=== PATIENT | female | born 1985 | race Caucasian/White ===

== ENCOUNTER → 2016-07-06 | Outpatient (CLI) | payer MEDICAID ==
[~2016-07-06] MED LIST: IBUP-1773 PO; PNV1TABL56 PO
--- NOTE | 2016-07-06 18:42 | Diagnostic Imaging Report ---
INDICATION: Neck pain. FINDINGS: Sonographic surveillance over the region of pain reveals no mass or fluid collection. Muscular echotexture and morphology appeared normal. IMPRESSION: No sonographic abnormality identified. Dictated by: Dictated on workstation # [id number]
== END ==
LOC: RAD 14:20
PROVIDERS: ATTEND Family Medicine
DX: R22.1 Localized swelling, mass and lump, neck (principal)
CPT/HCPCS: 76536

== ENCOUNTER 2016-11-17 06:58 | Day surgery (SDC) | payer MEDICAID ==
[~2016-11-17] VITALS: Ht 172.7 cm; Wt 94.8 kg
--- NOTE | 2016-11-17 07:01 | Progress Note-Pre Operative ---
Pre-Operative Progress Note H&P Reviewed The H&P was reviewed, patient examined and no changes noted. Date Seen by Provider: Nov 17, 2016 Time Seen by Provider: 07:05 Date H&P Reviewed: Nov 17, 2016 Time H&P Reviewed: 07:05 Pre-Operative Diagnosis: Retained IUD RIO VALLEJO DO Nov 17, 2016 7:01 am
[2016-11-17] MEDS ORDERED: LACTATED RINGERS 1,000 ML IV PRN (07:18)
[2016-11-17 07:30] VITALS: BP 125/82
[2016-11-17] MEDS ORDERED: CATHETER FLUSH 10 ML SYR IV PRN (07:30)
[2016-11-17] MEDS ORDERED: ceFAZolin 1 GM/NS 50 ML IVPB IV ONE ×2 (07:30)
[2016-11-17] MEDS ORDERED: MIDAZOLAM 2 MG/2 ML (VERSED) VIAL IV ONE (07:30)
[2016-11-17 07:41] LABS: BASOPHILS % (AUTO) 0 % (0-10); EOSINOPHILS # (AUTO) 0.1 10^3/uL (0.0-0.3); EOSINOPHILS % (AUTO) 2 % (0-10); LYMPHOCYTES # (AUTO) 1.7 X 10^3 (1.0-4.0); LYMPHOCYTES % (AUTO) 24 % (12-44); MEAN CORPUSCULAR HEMOGLOBIN 28 PG (25-34); MEAN CORPUSCULAR HGB CONC 33 G/DL (32-36); MEAN CORPUSCULAR VOLUME 84 FL (80-99); MEAN PLATELET VOLUME 10.4 FL (7.4-10.4); MONOCYTES # (AUTO) 0.5 X 10^3 (0.0-1.0); MONOCYTES % (AUTO) 7 % (0-12); NEUTROPHILS # (AUTO) 4.5 X 10^3 (1.8-7.8); NEUTROPHILS % (AUTO) 67 % (42-75); PLATELET COUNT 229 10^3/uL (130-400); RED BLOOD COUNT 4.69 10^6/uL (4.35-5.85); RED CELL DISTRIBUTION WIDTH 13.1 % (10.0-14.5); WHITE BLOOD COUNT 6.8 10^3/uL (4.3-11.0)
[2016-11-17] MEDS ORDERED: BUPIVACAINE 0.25% 30 ML (SENSORCAINE) VIAL ONE (09:20)
[2016-11-17] MEDS ORDERED: DEXAMETHASONE PF 10 MG/ML (DECADRON) VIAL ONE (09:23)
[2016-11-17] MEDS ORDERED: ROCURONIUM 50 MG/5 ML (ZEMURON) VIAL IV ONE ×2 (09:23→11:28)
[2016-11-17] MEDS ORDERED: LIDOCAINE PF 0.5% 50 ML (XYLOCAINE) VIAL ONE (09:23)
[2016-11-17] MEDS ORDERED: LACTATED RINGERS 1,000 ML IV ONE ×2 (09:23→12:12)
[2016-11-17] MEDS ORDERED: ONDANSETRON 4 MG/2 ML (SDV) Z0FRAN ONE (09:23)
[2016-11-17] MEDS ORDERED: proPOfol 200 MG/20 ML (DIPRIVAN) VIAL IV ONE ×2 (09:23→11:28)
[2016-11-17] MEDS ORDERED: SEVOFLURANE (ULTANE) 15 ML INHAL SOLN ONE ×2 (09:23→12:12)
[2016-11-17] MEDS ORDERED: MIDAZOLAM 2 MG/2 ML (VERSED) VIAL ONE ×2 (09:24→11:28)
[2016-11-17] MEDS ORDERED: fentaNYL INJECTION 100 MCG/2 ML AMP ONE ×2 (09:24→11:28)
[2016-11-17] MEDS ORDERED: IBUP-1773 PO (09:36)
[2016-11-17] MEDS ORDERED: HYDR-3062 PO (09:36)
[2016-11-17] MEDS ORDERED: GLYCOPYRROLATE 0.2 MG/ML (ROBINUL) 2 ML VIAL ONE (10:27)
[2016-11-17] MEDS ORDERED: NEOSTIGMINE (BLOXIVERZ ) 1 MG/1ML 10 ML VIAL ONE (10:27)
[2016-11-17] MEDS ORDERED: D5 LR IV SOLUTION 1,000 ML IV SCH (10:40)
--- NOTE | 2016-11-17 10:44 | Discharge Inst-Women's Service ---
Discharge Inst-Women's Serv Depart Medication/Instructions New, Converted or Re-Newed RX: RX Given to Pt/Family Final Diagnosis IUD not found Consults/Follow Up Additional Follow Up: Yes Orders/Referrals Dr. Vallejo in 2-3 weeks Activity Activity: Activity as Tolerated Driving Instructions: You May Drive (do not drive if taking hydrocodone) NO SMOKING: NO SMOKING Nothing Inside Vagina: No Douching, No Veteran (x 2 weeks), No Tampons Diet Discharge Diet: No Restrictions Symptoms to Report to : Appetite Changes, Bleeding Excessive, Pain Increased , Fever Over 101 Degrees F, Vaginal Bleeding Increase, Questions/Concerns For Any Problems or Questions: Contact Your Physician Skin/Wound Care Bathing Instructions: Shower (x 2 weeks) RIO VALLEJO DO Nov 17, 2016 10:44
[2016-11-17] MEDS ORDERED: morphine INJ 10 MG/ML 1ML (SYR OR VIAL) IVP PRN ×2 (10:45→12:45)
[2016-11-17] MEDS ORDERED: ONDANSETRON 4 MG/2 ML (SDV) Z0FRAN IVP PRN ×3 (10:45→12:45)
[2016-11-17] MEDS ORDERED: MEPERIDINE (DEMEROL) INJ 50 MG/ML IVP PRN (10:45)
[2016-11-17] MEDS ORDERED: fentaNYL INJECTION 100 MCG/2 ML AMP IVP PRN (10:45)
[2016-11-17] MEDS ORDERED: KETOROLAC 30 MG/ML VIAL IVP ONE (10:45)
--- NOTE | 2016-11-17 11:05 | Diagnostic Imaging Report ---
AP view of the pelvis. INDICATION: Check for position of IUD. FINDINGS: There is an IUD seen along the right lateral aspect of the pelvis. No fracture, dislocation or radiopaque foreign body seen. IMPRESSION: There is an IUD seen in the right lateral aspect of the pelvis. Dictated by: Dictated on workstation # [id number]
[2016-11-17] MEDS ORDERED: SUGAMMADEX 100 MG/ML 5 ML (BRIDION) IV ONE (12:00)
[2016-11-17] MEDS ORDERED: GLUCAGON EMERGENCY 1 MG/KIT ONE (12:52)
[2016-11-17 13:15] VITALS: BP 119/84
[2016-11-17 13:45] VITALS: BP 126/79
[2016-11-17 14:15] VITALS: BP 119/74
--- NOTE | 2016-11-17 21:50 | OPERATIVE REPORT ---
DATE OF SERVICE: PREOPERATIVE DIAGNOSIS: A 31-year-old female with retained intrauterine device. POSTOPERATIVE DIAGNOSIS: A 31-year-old female with retained intrauterine device. PROCEDURE: Cervical dilation and hysteroscopy. ANESTHESIA: LMA General. ESTIMATED BLOOD LOSS: Minimal. URINE OUTPUT: 10 mL clear drained at the end of procedure. FLUIDS: 500 mL of normal saline solution. FINDINGS: Normal-appearing uterus and endometrial cavity. No evidence of perforation. Normal tubal ostia appreciated on hysteroscopic evaluation. Normal appearing cervix. Normal adnexa on bimanual examination. SPECIMENS SENT: None. INDICATIONS FOR PROCEDURE: This is a 31-year-old female in consultation to my office for a retained IUD that was seen on her last exam with . The patient reports ongoing bloating and cramping since placement of the IUD approximately 11 months ago. Upon my evaluation in the office, I was unable to remove the IUD and performed a limited ultrasound at bedside in my office, which did show it looked like it was in the lower uterine segment but due to the patient's discomfort, we did not proceed with further attempting to remove the IUD and I then decided to proceed with removal under anesthesia. Risks of the procedure were discussed with the patient in detail including possible laparoscopy and hysteroscopy. After all the questions were answered and her fiance was present for all those questions as well as consent was obtained in the preoperative day and the patient was taken to the operative room. OPERATIVE REPORT IN DETAIL: Once in the operating room, general anesthesia was found to be adequate, was placed in dorsal lithotomy position, prepped and draped in a normal sterile fashion. A lid speculum was inserted into the patient's vagina, a right angle retractor was used to visualize the cervix. It was grasped at about 2 o'clock position using a long Allis clamp and a block was performed at 3 and 9 o'clock position using 0.25% Marcaine, total of 10 mL was used, 5 at each injection site. I then gently sounded uterine cavity depth was found to be 8 cm and used the uterine sound to rotate throughout the endometrial cavity to feel for the IUD. I then blindly attempt unto remove the IUD using long polyp forceps and I was unable to grasp it. After several failed attempts of doing this, I then proceed with hysteroscopy. Using normal saline as my visual medium, I advanced the hysteroscope into the uterine cavity. Starting visualization of the cervix, I am unable to visualize any signs of the IUD perforation or any kind of damage of the endometrial cavity is noted. This is all documented with my pictures of the intrauterine cavity. At which point, I draw two conclusions of either one the IUD did come out or two it did perforate but this happened quite some time ago due to no evidence of damage on hysteroscopy. I decided to awake the patient up and performed KUB to confirm that it had actually come out vaginally. All instruments were removed from the patient's vagina. The patient tolerated the procedure well, send to recovery room in stable condition. Bladder was emptied after the procedure was complete. Lap, sponge, needle counts are correct at the end of the procedure. Job ID: [id number] DocumentID: [id number] Dictated Date: 11/17/2016 10:49:34 Copy Lathe Tender Date: 11/17/2016 14:02:42 Dictated By: RIO ARELLANO MD
--- NOTE | 2016-11-17 23:38 | OPERATIVE REPORT ---
DATE OF SERVICE: PREOPERATIVE DIAGNOSIS: Retained intrauterine device in the right lower quadrant on KUB. POSTOPERATIVE DIAGNOSIS: Retained intrauterine device in the right lower quadrant on KUB. PROCEDURE: Laparoscopic retrieval of intraperitoneal intrauterine device. SURGEON: Rio Vallejo DO ANESTHESIA: General endotracheal. ESTIMATED BLOOD LOSS: Minimal. URINE OUTPUT: Not recorded. FLUIDS: 600 mL lactated ringer solution. FINDINGS: There is Mirena IUD located in the pelvis posterior to the broad ligament in the area of the ovarian fossa. There is normal appearing uterus, fallopian tubes and ovaries. INDICATIONS FOR PROCEDURE: This patient has just came out of anesthesia from diagnostic hysteroscopy to locate IUD. A KUB was performed in the recovery setting, but the IUD was identified in the right lower quadrant on KUB x-ray. I have briefly discussed with the patient and her family that we will take her back to the operating room to remove the IUD from the intraperitoneal placement that was noted on the x-ray. I have already discussed with the patient before and had her consent to receive with laparoscopy and, therefore the patient was then taken back to the operating room. OPERATIVE REPORT IN DETAIL: Once in the operating room general anesthesia was found to be adequate, she was placed in the supine position and prepped and draped in normal sterile fashion. I infiltrated the skin just inferior to the umbilicus using 0.25% Marcaine and make a 12 mm incision. Once this incision was made, I directed Veress needle to this incision. Intraperitoneal placement was confirmed using the saline drop test. I then proceeded with insufflation using CO2 gas. An opening pressure of 2 mmHg was noted. I proceeded to a maximum pressure of 15 mmHg, at which point I removed the Veress needle and introduced a 12 mm blunt trocar. Once this was in place, I am able to confirm intraperitoneal placement using the laparoscope. I briefly scanned the upper abdominal anatomy for any evidence of damage upon entry and there is none. I then have the patient placed in steep Trendelenburg and I am able to visualize after lifting up the uterus and fallopian tube using the camera, the IUD in the right ovarian fossa. I then introduced to the same port as the 12 mm trocar, a 5 mm camera and a grasper. The grasper was used to grasp the IUD by the strings and it is easily removed through the 12 mm trocar site. I then briefly scanned where the IUD was okay. There was no evidence of damage or bleeding. At which point I deemed the procedure complete and removed the laparoscope. I then released the insufflation through the trocar and closed the deep fascia of this trocar site after removing it using 0 Vicryl suture in interrupted fashion. The skin was reapproximated using 4-0 Monocryl and an interrupted subcuticular stitch. Dermabond was applied to the incision and a Band-Aid was placed over this. The patient tolerated the procedure well and was taken to recovery area in stable condition. Lap and sponge counts correct at the end of the procedure. Instrument count was correct as well. Job ID: [id number] DocumentID: [id number] Dictated Date: 11/17/2016 13:11:50 Community Relations Liaison Date: 11/17/2016 20:49:08 Dictated By: RIO VALLEJO DO
--- OUTSIDE RECORDS SUMMARY | 2016-11-21 10:29 | XMS REPORT ---
Author Author NAHOMY CORDOBA [facility] eClinicalWorks Address Unknown Phone Unavailable Care Team Providers Care Electric Razor Mechanic Name Role Phone NAHOMY CORDOBA Unavailable Allergies, Adverse Reactions, Alerts Substance Reaction Event Type N.K.D.A. Info Not Available Non Drug Allergy Problems Problem Type Condition Code Onset Dates Condition Status Assessment Leukopenia, unspecified type D72.819 Active Assessment with 12 completed weeks gestation Z3A.12 Active Assessment Nausea R11.0 Active Problem Need for rhogam due to Rh negative mother O36.0990 Active Problem History of pre-eclampsia in prior , currently in first trimester O09.291 Active Problem Vaginal bleeding during , antepartum O46.90 Active Assessment History of pre-eclampsia in prior , currently in first trimester O09.291 Active Assessment Need for rhogam due to Rh negative mother O36.0990 Active Problem Abdominal cramping R10.9 Active Assessment care, subsequent in first trimester Z34.81 Active Medications Medication Code System Code Instructions Start Date End Date Status Dosage Vitamin [facility] [address] not defined Procedures Procedure Coding System Code Date Office Visit, Est Pt., Level 3 CPT-4 40401 Jun 30, 2015 BLOOD SMEAR INTERPRETATION CPT-4 88884 Jun 30, 2015 URINE-NO MICRO CPT-4 68395 Jun 30, 2015 ACUTE HEPATITIS PANEL CPT-4 51771 Jun 30, 2015 COMPLETE CBC W/AUTO DIFF WBC CPT-4 59660 Jun 30, 2015 VENIPUNCT, ROUTINE* CPT-4 92164 Jun 30, 2015 Vital Signs Date/Time: Jun 30, 2015 Temperature 98.4 F Weight 171.9 lbs Height 68.5 in BMI 25.757 Index Blood Pressure Diastolic 85 mmHg Blood Pressure Systolic 118 mmHg Cardiac Monitoring Heart Rate 76 bpm Results Name Result Date Reference Range Unit Abnormality Flag PERIPHERAL BLOOD SMEAR ----PLTs Appear normal. 20150630 ----WBC Appear normal. [id number] ----RBC Appear normal. 20150630 CBC ----Basos 0 20150630 % ----MCV 86 31167647 79-97 fL ----Hematocrit 39.8 72701455 34.0-46.6 % ----Eos 0 20150630 % ----MCHC 32.4 41320760 31.5-35.7 g/dL ----Monocytes 6 69944406 % ----MCH 27.7 31492622 26.6-33.0 pg ----Lymphs 17 92952866 % ----Eos (Absolute) 0.0 [id number] 0.0-0.4 x10E3/uL ----WBC 8.2 24032834 3.4-10.8 x10E3/uL ----Monocytes(Absolute) 0.5 44524098 0.1-0.9 x10E3/uL ----Lymphs (Absolute) 1.4 64929972 0.7-3.1 x10E3/uL ----Hemoglobin 12.9 65711848 11.1-15.9 g/dL ----Neutrophils (Absolute) 6.3 73390847 1.4-7.0 x10E3/uL ----RBC 4.65 91658756 3.77-5.28 x10E6/uL ----Immature Grans (Abs) 0.0 25537923 0.0-0.1 x10E3/uL ----Immature Granulocytes 0 20150630 % ----Neutrophils 77 50350642 % ----Baso (Absolute) 0.0 52870317 0.0-0.2 x10E3/uL ----RDW 14.1 23688105 12.3-15.4 % ----Platelets 227 19928039 150-379 x10E3/uL UA OB DIP (IN HOUSE) ----Glucose Negative 20150630 ----Protein Negative 20150630 ROUTINE VENIPUNCTURE HEPATITIS PROFILE ----Hep C Virus Ab <0.1 20150630 0.0-0.9 s/co ratio ----Hep B Core Ab, IgM Negative 20150630 Negative ----HBsAg Screen Negative 20150630 Negative ----Hep A Ab, IgM Negative 20150630 Negative Summary Purpose eClinicalWorks Submission
--- OUTSIDE RECORDS SUMMARY | 2016-11-21 10:29 | XMS REPORT ---
Author Author TONEY TENORIO [facility] eClinicalWorks Address Unknown Phone Unavailable Care Team Providers Care Websphere Message Broker Developer Name Role Phone TONEY TENORIO CP Unavailable Allergies No Known Allergies Problems Problem Type Condition Code Onset Dates Condition Status Assessment 24 weeks gestation of Z3A.24 Active Problem Underimmunization status Z28.3 Active Problem Vaginal bleeding during , antepartum O46.90 Active Problem Other normal , not first, second trimester Z34.82 Active Problem Abdominal cramping R10.9 Active Assessment Other normal , not first, second trimester Z34.82 Active Problem Need for rhogam due to Rh negative mother O36.0990 Active Problem History of pre-eclampsia in prior , currently in first trimester O09.291 Active Medications Medication Code System Code Instructions Start Date End Date Status Dosage Vitamin [facility] [address] not defined Procedures Procedure Coding System Code Date Office Visit, Est Pt., Level 3 CPT-4 78606 September 21, 2015 URINE-NO MICRO CPT-4 91166 September 21, 2015 Vital Signs Date/Time: September 21, 2015 Temperature 97.8 F Weight 184.1 lbs Height 68.5 in BMI 27.585 Index Blood Pressure Diastolic 82 mmHg Blood Pressure Systolic 122 mmHg Cardiac Monitoring Heart Rate 78 bpm Results No Known Results Summary Purpose eClinicalWorks Submission
--- OUTSIDE RECORDS SUMMARY | 2016-11-21 10:29 | XMS REPORT ---
Author Author TONEY TENORIO [facility] Address [address] [place] [address] Care Team Providers Care Adoption Specialist Name Role Phone TONEY TENORIO Unavailable PROBLEMS Type Condition ICD9-CM Code VNK26-HJ Code Onset Dates Condition Status SNOMED Code Assessment Routine follow-up Z39.2 Jan, Active [id number] Assessment Encounter for counseling regarding contraception Z30.9 Jan Active [id number] ALLERGIES Substance Reaction Event Type Date Status N.K.D.A. Unknown Non Drug Allergy Jan, Unknown SOCIAL HISTORY No smoking Hx information available PLAN OF CARE VITAL SIGNS Height 68.5 in 2016-02-15 Weight 184.0 lbs 2016-02-15 Heart Rate 78 bpm 2016-02-15 Respiratory Rate 20 2016-02-15 BMI 27.57 kg/m2 2016-02-15 Blood pressure systolic 126 mmHg 2016-02-15 Blood pressure diastolic 78 mmHg 2016-02-15 MEDICATIONS No Known Medications RESULTS No Results PROCEDURES Procedure Date Ordered Related Diagnosis Body Site Office Visit, Est Pt., Level 3 Feb 15, 2016 IMMUNIZATIONS No Known Immunizations
--- OUTSIDE RECORDS SUMMARY | 2016-11-21 10:29 | XMS REPORT | Continuity of Care Document ---
Author Author [facility] Address Unknown Phone Unavailable Allergies Active Description Code Type Severity Reaction Onset Reported/Identified Relationship to Patient Clinical Status Yes No Known Drug Allergies [id number] Drug Allergy Unknown N/ A 06/13/2012 Medications Problems Date Dx Coded Attending Type Code Diagnosis Diagnosed By 11/24/2011 TONEY TENORIO DO V72.42 Test Positive Result 11/24/2011 V72.42 Test Positive Result 11/24/2011 V72.42 Test Positive Result 11/24/2011 TONEY TENORIO DO V72.42 Test Positive Result 11/24/2011 V72.42 Test Positive Result 11/24/2011 V72.42 Test Positive Result 11/24/2011 V72.42 Test Positive Result 11/24/2011 TONEY TENORIO DO V72.42 Test Positive Result 11/24/2011 MAIA FELIX MD V72.42 Test Positive Result 12/07/2011 TONEY TENORIO DO V22.0 , NORMAL FIRST 12/07/2011 V22.0 , NORMAL FIRST 12/07/2011 V22.0 , NORMAL FIRST 12/07/2011 TONEY TENORIO DO V22.0 , NORMAL FIRST 12/07/2011 V22.0 , NORMAL FIRST 12/07/2011 V22.0 , NORMAL FIRST 12/07/2011 V22.0 , NORMAL FIRST 12/07/2011 TONEY TENORIO DO V22.0 , NORMAL FIRST 12/07/2011 MAIA FELIX MD V22.0 , NORMAL FIRST 12/21/2011 TONEY TENORIO DO V76.2 Cervical Cancer Screening (pap Smear) 12/21/2011 V76.2 Cervical Cancer Screening (pap Smear) 12/21/2011 V76.2 Cervical Cancer Screening (pap Smear) 12/21/2011 TONEY TENORIO DO V76.2 Cervical Cancer Screening (pap Smear) 12/21/2011 V76.2 Cervical Cancer Screening (pap Smear) 12/21/2011 V76.2 Cervical Cancer Screening (pap Smear) 12/21/2011 V76.2 Cervical Cancer Screening (pap Smear) 12/21/2011 TONEY TENORIO DO V76.2 Cervical Cancer Screening (pap Smear) 12/21/2011 MAIA FELIX MD V76.2 Cervical Cancer Screening (pap Smear) 01/18/2012 TONEY TENORIO DO 656.13 RH NEGATIVE 01/18/2012 656.13 RH NEGATIVE 01/18/2012 656.13 RH NEGATIVE 01/18/2012 TONEY TENORIO DO 656.13 RH NEGATIVE 01/18/2012 656.13 RH NEGATIVE 01/18/2012 656.13 RH NEGATIVE 01/18/2012 656.13 RH NEGATIVE 01/18/2012 TONEY TENORIO DO 656.13 RH NEGATIVE 01/18/2012 MAIA FELIX MD 656.13 RH NEGATIVE 04/11/2012 TONEY TENORIO DO V77.1 Diabetes Screening 04/11/2012 TONEY TENORIO DO V78.0 Anemia Screening 04/11/2012 V77.1 Diabetes Screening 04/11/2012 V78.0 Anemia Screening 04/11/2012 V77.1 Diabetes Screening 04/11/2012 V78.0 Anemia Screening 04/11/2012 TONEY TENORIO DO V77.1 Diabetes Screening 04/11/2012 TONEY TENORIO DO V78.0 Anemia Screening 04/11/2012 V77.1 Diabetes Screening 04/11/2012 V78.0 Anemia Screening 04/11/2012 V77.1 Diabetes Screening 04/11/2012 V78.0 Anemia Screening 04/11/2012 V77.1 Diabetes Screening 04/11/2012 V78.0 Anemia Screening 04/11/2012 TONEY TENORIO DO V77.1 Diabetes Screening 04/11/2012 TONEY TENORIO DO V78.0 Anemia Screening 04/11/2012 MAIA FELIX MD V77.1 Diabetes Screening 04/11/2012 MAIA FELIX MD V78.0 Anemia Screening 06/13/2012 TONEY TENORIO DO 796.2 ELEVATED BLOOD PRESSURE READING WITHOUT DIAGNOSIS OF HYPERTENSION 06/13/2012 796.2 ELEVATED BLOOD PRESSURE READING WITHOUT DIAGNOSIS OF HYPERTENSION 06/13/2012 796.2 ELEVATED BLOOD PRESSURE READING WITHOUT DIAGNOSIS OF HYPERTENSION 06/13/2012 796.2 ELEVATED BLOOD PRESSURE READING WITHOUT DIAGNOSIS OF HYPERTENSION 06/13/2012 TONEY TENORIO DO 796.2 ELEVATED BLOOD PRESSURE READING WITHOUT DIAGNOSIS OF HYPERTENSION 06/13/2012 MAIA FELIX MD 796.2 ELEVATED BLOOD PRESSURE READING WITHOUT DIAGNOSIS OF HYPERTENSION 06/14/2012 Ot 646.83 06/14/2012 Ot 796.2 06/18/2012 642.90 COMPL OF - HTN/PIH 06/18/2012 V23.9 , HIGH-RISK (UNSPEC) 06/18/2012 642.90 COMPL OF - HTN/PIH 06/18/2012 V23.9 , HIGH-RISK (UNSPEC) 06/18/2012 642.90 COMPL OF - HTN/PIH 06/18/2012 V23.9 , HIGH-RISK (UNSPEC) 06/18/2012 TONEY TENORIO DO 642.90 COMPL OF - HTN/PIH 06/18/2012 TONEY TENORIO DO V23.9 , HIGH-RISK (UNSPEC) 06/18/2012 MAIA FELIX MD 642.90 COMPL OF - HTN/PIH 06/18/2012 MAIA FELIX MD V23.9 , HIGH-RISK (UNSPEC) 06/28/2012 V81.1 HYPERTENSION SCREENING 06/28/2012 TONEY TENORIO DO V81.1 HYPERTENSION SCREENING 06/28/2012 MAIA FELIX MD V81.1 HYPERTENSION SCREENING 06/30/2012 Ot 642.31 06/30/2012 Ot 664.11 06/30/2012 Ot V07.2 06/30/2012 Ot V27.0 11/20/2013 MAIA FELIX MD 278.02 OVERWEIGHT 11/20/2013 MAIA FELIX MD 780.79 FATIGUE 11/20/2013 MAIA FELIX MD V65.3 COUNSELING - DIETARY 08/13/2015 Ot 649.63 08/13/2015 Ot V28.81 08/13/2015 NAHOMY CORDOBA APRN Ot Z34.81 08/13/2015 NAHOMY CORDOBA APRN Ot Z3A.08 08/13/2015 Ot 649.63 08/13/2015 Ot V28.81 08/13/2015 NAHOMY CORDOBA CHAIR SPRING ASSEMBLER Ot Z34.81 08/13/2015 CHETAN CORDOBAArie Luciano CHAIR SPRING ASSEMBLER Ot Z3A.08 08/14/2015 NAHOMY CORDOBA Ankita CHAIR SPRING ASSEMBLER Ot Z34.81 08/14/2015 NAHOMY CORDOBA Ankita CHAIR SPRING ASSEMBLER Ot Z3A.08 09/03/2015 Ot Z34.82 09/03/2015 Ot Z36 09/16/2015 Ot Z34.82 ENCOUNTER FOR SUPRVSN OF NORMAL PREGNANC 09/16/2015 Ot Z36 ENCOUNTER FOR SCREENING OF MOT 09/30/2015 TONEY TENORIO DO Ot Z34.82 ENCOUNTER FOR SUPRVSN OF NORMAL PREGNANC 09/30/2015 TONEY TENORIO DO Ot Z34.82 ENCOUNTER FOR SUPRVSN OF NORMAL PREGNANC 10/15/2015 TONEY TENORIO DO Ot Z34.82 ENCOUNTER FOR SUPRVSN OF NORMAL PREGNANC 01/06/2016 TONEY TENORIO DO Ot O70.0 FIRST DEGREE PERINEAL LACERATION DURING 01/06/2016 TONEY TENORIO DO Ot Z23 ENCOUNTER FOR IMMUNIZATION 01/06/2016 TONEY TENORIO DO Ot Z37.0 SINGLE LIVE 01/06/2016 TONEY TENORIO DO Ot Z3A.39 39 WEEKS GESTATION OF 07/06/2016 Ot Z34.82 ENCOUNTER FOR SUPRVSN OF NORMAL PREGNANC 07/06/2016 Ot Z36 ENCOUNTER FOR SCREENING OF MOT 07/06/2016 TONEY TENORIO DO Ot Z34.82 ENCOUNTER FOR SUPRVSN OF NORMAL PREGNANC 07/07/2016 MAIA FELIX MD Ot R22.1 LOCALIZED SWELLING, MASS AND LUMP, NECK 07/07/2016 MAIA FELIX MD Ot R22.1 LOCALIZED SWELLING, MASS AND LUMP, NECK 07/25/2016 MAIA FELIX MD Ot R22.1 LOCALIZED SWELLING, MASS AND LUMP, NECK Procedures Code [place] [address] ROUTINE VENIPUNCTURE 04/11/2012 02225 UA OB DIP 2011 16339 GLUCOSE ANDREY 1 HOUR 04/12/2012 41065 CBC 04/12/2012 71666 ANTIBODY SCREEN (order) 04/12/2012 J2790 RHOGHAM 300 MCG 04/12/2012 79621 UA OB DIP 2011 22167 UA OB DIP 2011 64317 UA OB DIP 2012 23811 UA OB DIP 2012 23781 CULTURE GROUP B STREP VAG 06/14/2012 47129 NON-STRESS TEST 06/18/2012 71158 UA OB DIP 2012 91980 NON-STRESS TEST 06/25/2012 94705 UA OB DIP 2012 2000F BLOOD PRESSURE CHECK 06/28/2012 29428 NON-STRESS TEST 06/28/2012 94060 UA OB DIP 2012 31228 ROUTINE VENIPUNCTURE 11/20/2013 97205 CMP 11/20/2013 68044 LIPID PANEL 11/20 71806 TSH 11/20/2013 80082 CMP 11/20/2013 05808 LIPID PANEL 11/20 01349 TSH 11/20/2013 08486 CBC 11/20/2013 46126 CBC 11/20/2013 [id number] REPAIR PERINEUM SKIN, EXTERNAL APPROACH 01/05/2016 [id number] DELIVERY OF PRODUCTS OF CONCEPTION, EXTE 01/05/2016 [id number] INTRODUCTION OF OTH HORMONE INTO PERIPH 01/05/2016 Results Test Result Range Complete blood count (CBC) with automated white blood cell (WBC) differential - 01/05/16 07:52 Blood leukocytes automated count (number/volume) 9.2 10*3/ uL 4.3-11.0 Blood erythrocytes automated count (number/volume) 3.91 10*6 /uL 4.35-5.85 Venous blood hemoglobin measurement (mass/volume) 11.8 g/dL 11.5-16.0 Blood hematocrit (volume fraction) 34 % 35-52 Automated erythrocyte mean corpuscular volume 88 [foz_us] 80-99 Automated erythrocyte mean corpuscular hemoglobin (mass per erythrocyte) 30 pg 25-34 Automated erythrocyte mean corpuscular hemoglobin concentration measurement ( mass/volume) 34 g/dL 32-36 Automated erythrocyte distribution width ratio 13.7 % 10.0-14.5 Automated blood platelet count (count/volume) 156 10*3/uL 130-400 Automated blood platelet mean volume measurement 10.5 [foz_ us] 7.4-10.4 Automated blood neutrophils/100 leukocytes 78 % 42-75 Automated blood lymphocytes/100 leukocytes 14 % 12-44 Blood monocytes/100 leukocytes 7 % 0-12 Automated blood eosinophils/100 leukocytes 0 % 0-10 Automated blood basophils/100 leukocytes 0 % 0-10 Blood neutrophils automated count (number/volume) 7.2 10*3 1.8-7.8 Blood lymphocytes automated count (number/volume) 1.3 10*3 1.0-4.0 Blood monocytes automated count (number/volume) 0.7 10*3 0.0-1.0 Automated eosinophil count 0.0 10*3/uL 0.0-0.3 Automated blood basophil count (count/volume) 0.0 10*3/uL 0.0-0.1 Blood type T Indirect antibody screen panel - 01/05/16 07:52 ABO+Rh group AN NRG Transfusion band number [id number] NRG Blood group antibody screen NEGATIVE NRG Complete blood count (CBC) with automated white blood cell (WBC) differential - 01/06/16 05:07 Blood leukocytes automated count (number/volume) 12.7 10*3/ uL 4.3-11.0 Blood erythrocytes automated count (number/volume) 3.57 10*6 /uL 4.35-5.85 Venous blood hemoglobin measurement (mass/volume) 10.8 g/dL 11.5-16.0 Blood hematocrit (volume fraction) 32 % 35-52 Automated erythrocyte mean corpuscular volume 89 [foz_us] 80-99 Automated erythrocyte mean corpuscular hemoglobin (mass per erythrocyte) 30 pg 25-34 Automated erythrocyte mean corpuscular hemoglobin concentration measurement ( mass/volume) 34 g/dL 32-36 Automated erythrocyte distribution width ratio 13.6 % 10.0-14.5 Automated blood platelet count (count/volume) 154 10*3/uL 130-400 Automated blood platelet mean volume measurement 10.4 [foz_ us] 7.4-10.4 Automated blood neutrophils/100 leukocytes 79 % 42-75 Automated blood lymphocytes/100 leukocytes 12 % 12-44 Blood monocytes/100 leukocytes 8 % 0-12 Automated blood eosinophils/100 leukocytes 0 % 0-10 Automated blood basophils/100 leukocytes 0 % 0-10 Blood neutrophils automated count (number/volume) 10.1 10*3 1.8-7.8 Blood lymphocytes automated count (number/volume) 1.5 10*3 1.0-4.0 Blood monocytes automated count (number/volume) 1.1 10*3 0.0-1.0 Automated eosinophil count 0.0 10*3/uL 0.0-0.3 Automated blood basophil count (count/volume) 0.0 10*3/uL 0.0-0.1 RH IMMUNE GLOBULIN [facility] - 01/06/16 05:07 RH IMMUNE GLOBULIN [facility] PRSMD TRFSD 03/13 1623 NRG cell screen - 01/06/16 05:07 SCREEN LOT NUMBER [id number] NRG Transfusion band number [id number] 300ug NRG Erythrocytes./1000 erythrocytes 01/15/16 NRG cell screen 02/17/18 NRG Lot number [id number] NRG Urine beta human chorionic gonadotropin (hCG) measurement - 11/17/16 07:15 Urine beta human chorionic gonadotropin (hCG) measurement NEGATIVE NEGATIVE Methicillin resistant Staphylococcus aureus (MRSA) screening culture - 07:15 Methicillin resistant Staphylococcus aureus (MRSA) screening culture NEG NRG Complete blood count (CBC) with automated white blood cell (WBC) differential - 11/17/16 07:29 Blood leukocytes automated count (number/volume) 6.8 10*3/ uL 4.3-11.0 Blood erythrocytes automated count (number/volume) 4.69 10*6 /uL 4.35-5.85 Venous blood hemoglobin measurement (mass/volume) 13.1 g/dL 11.5-16.0 Blood hematocrit (volume fraction) 39 % 35-52 Automated erythrocyte mean corpuscular volume 84 [foz_us] 80-99 Automated erythrocyte mean corpuscular hemoglobin (mass per erythrocyte) 28 pg 25-34 Automated erythrocyte mean corpuscular hemoglobin concentration measurement ( mass/volume) 33 g/dL 32-36 Automated erythrocyte distribution width ratio 13.1 % 10.0-14.5 Automated blood platelet count (count/volume) 229 10*3/uL 130-400 Automated blood platelet mean volume measurement 10.4 [foz_ us] 7.4-10.4 Automated blood neutrophils/100 leukocytes 67 % 42-75 Automated blood lymphocytes/100 leukocytes 24 % 12-44 Blood monocytes/100 leukocytes 7 % 0-12 Automated blood eosinophils/100 leukocytes 2 % 0-10 Automated blood basophils/100 leukocytes 0 % 0-10 Blood neutrophils automated count (number/volume) 4.5 10*3 1.8-7.8 Blood lymphocytes automated count (number/volume) 1.7 10*3 1.0-4.0 Blood monocytes automated count (number/volume) 0.5 10*3 0.0-1.0 Automated eosinophil count 0.1 10*3/uL 0.0-0.3 Automated blood basophil count (count/volume) 0.0 10*3/uL 0.0-0.1 Blood type T Indirect antibody screen panel - 11/17/16 07:29 ABO+Rh group AN NRG Transfusion band number [id number] NRG Blood group antibody screen NEGATIVE NRG Encounters ACCT No. Visit Date/Time Discharge Status Pt. Type Provider Facility Loc./Unit Complaint [id number] 11/20/2013 10:37:00 11/20/2013 23: 59:59 CLS Outpatient MAIA FELIX MD [id number] 07/17/2012 17:10:00 07/17/2012 23: 59:59 CLS Outpatient TONEY TENORIO DO [id number] 06/25/2012 15:47:00 06/25/2012 23: 59:59 CLS Outpatient [id number] 06/18/2012 14:13:00 06/18/2012 23: 59:59 CLS Outpatient [id number] 06/18/2012 14:13:00 06/18/2012 23: 59:59 CLS Outpatient [id number] 06/13/2012 15:54:00 06/13/2012 23: 59:59 CLS Outpatient TONEY TENORIO DO [id number] 05/30/2012 15:25:00 05/30/2012 23: 59:59 CLS Outpatient [id number] 05/14/2012 14:29:00 05/14/2012 23: 59:59 CLS Outpatient [id number] 04/11/2012 15:17:00 04/11/2012 23: 59:59 CLS Outpatient TONEY TENORIO DO
--- OUTSIDE RECORDS SUMMARY | 2016-11-21 10:29 | XMS REPORT ---
Author Author NAHOMY CORDOBA Organization [employer] Address Unknown Phone Unavailable Care Team Providers Care Creative Services Specialist Name Role Phone NAHOMY CORDOBA CP Unavailable Allergies No Known Allergies Problems Problem Type Condition Code Onset Dates Condition Status Problem Need for rhogam due to Rh negative mother O36.0990 Active Problem History of pre-eclampsia in prior , currently in first trimester O09.291 Active Problem Vaginal bleeding during , antepartum O46.90 Active Problem Abdominal cramping R10.9 Active Medications No Known Medications Results No Known Results Summary Purpose [employer] Submission
--- OUTSIDE RECORDS SUMMARY | 2016-11-21 10:29 | XMS REPORT ---
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 Problem Normal in multigravida in third trimester Z34.83 Active Problem History of pre-eclampsia in prior , currently in first trimester O09.291 Active Problem Abdominal cramping R10.9 Active Problem Vaginal bleeding during , antepartum O46.90 Active Problem Need for rhogam due to Rh negative mother O36.0990 Active Medications Medication Code System Code Instructions Start Date End Date Status Dosage Vitamin [facility] [address] not defined Procedures Procedure Coding System Code Date Office Visit, Est Pt., Level 3 CPT-4 36791 Jan 04, 2016 URINE-NO MICRO CPT-4 08755 Jan 04, 2016 Vital Signs Date/Time: Jan 04, 2016 Cardiac Monitoring Heart Rate 80 bpm Weight 207.9 lbs Height 68.5 in BMI 31.151 Index Blood Pressure Diastolic 84 mmHg Blood Pressure Systolic 121 mmHg Results No Known Results Summary Purpose [employer] Submission
--- OUTSIDE RECORDS SUMMARY | 2016-11-21 10:29 | XMS REPORT ---
Author Author MAIA FELIX [employer] Address Unknown Phone Unavailable Care Team Providers Care Ramp Jockey Name Role Phone MAIA FELIX CP Unavailable Allergies, Adverse Reactions, Alerts Substance Reaction Event Type N.K.D.A. Info Not Available Non Drug Allergy Problems Problem Type Condition Code Onset Dates Condition Status Assessment Normal in multigravida in third trimester Z34.83 Active Assessment 38 weeks gestation of Z3A.38 Active Problem Other normal , not first, [...] Start Date End Date Status Dosage Vitamin [facility] [id number] not defined Procedures Procedure Coding System Code Date Office Visit, Est Pt., Level 2 CPT-4 30981 Dec 29, 2015 URINE-NO MICRO CPT-4 67100 Dec 29, 2015 Vital Signs Date/Time: Dec 29, 2015 Cardiac Monitoring Heart Rate 80 bpm Weight 207.9 lbs Height 68.5 in BMI 31.151 Index Blood Pressure Diastolic 90 mmHg Blood Pressure Systolic 142 mmHg Results No Known Results Summary Purpose [employer] Submission
--- OUTSIDE RECORDS SUMMARY | 2016-11-21 10:29 | XMS REPORT ---
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
--- OUTSIDE RECORDS SUMMARY | 2016-11-21 10:30 | XMS REPORT ---
Author Author TONEY TENORIO [facility] [employer] Address Unknown Phone Unavailable Care Team Providers Care Cert Pharmacy Tech Name Role Phone TONEY TENORIO CP Unavailable Allergies, Adverse Reactions, Alerts Substance [...] Start Date End Date Status Dosage Vitamin [facility] [address] not defined Procedures Procedure Coding System Code Date Office Visit, Est Pt., Level 3 CPT-4 28173 December 23, 2015 URINE-NO MICRO CPT-4 36479 December 23, 2015 Vital Signs Date/Time: December 23, 2015 Cardiac Monitoring Heart Rate 78 bpm Weight 206.4 lbs Height 68.5 in BMI 30.92 Index Blood Pressure Diastolic 82 mmHg Blood Pressure Systolic 124 mmHg Results No Known Results Summary Purpose [employer] Submission
--- OUTSIDE RECORDS SUMMARY | 2016-11-21 10:30 | XMS REPORT ---
Author TONEY Jennings [facility] [employer] Address Unknown Phone Unavailable Care Team Providers Care Real Estate Lawyer Name Role Phone TONEY TENORIO CP Unavailable Allergies No Known Allergies Problems Problem Type Condition Code Onset Dates Condition Status Assessment Normal in multigravida in third trimester Z34.83 Active Assessment 36 weeks gestation of Z3A.36 Active Problem Other normal , not first, [...] Start Date End Date Status Dosage Vitamin [facility] [address] not defined Procedures Procedure Coding System Code Date Office Visit, Est Pt., Level 3 CPT-4 75287 December 16, 2015 URINE-NO MICRO CPT-4 98215 December 16, 2015 Vital Signs Date/Time: December 16, 2015 Blood Pressure Systolic 128 mmHg Weight 203.0 lbs Height 68.5 in Blood Pressure Diastolic 78 mmHg Results No Known Results Summary Purpose [employer] Submission
--- OUTSIDE RECORDS SUMMARY | 2016-11-21 10:30 | XMS REPORT ---
Author TONEY Jennings [facility] [employer] Address Unknown Phone Unavailable Care Team Providers Care Telesales Manager Name Role Phone TONEY TENORIO CP Unavailable Allergies No Known Allergies Problems Problem Type Condition Code Onset Dates Condition Status Problem Overweight 278.02 Active Problem Screening for malignant neoplasm of the cervix V76.2 Active Problem Other malaise and fatigue 780.79 Active Problem Screening for diabetes mellitus V77.1 Active Problem Screening for iron deficiency anemia V78.0 Active Problem Supervision of normal first V22.0 Active Problem Unspecified high-risk V23.9 Active Problem Rhesus isoimmunization affecting management of mother, 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
--- OUTSIDE RECORDS SUMMARY | 2016-11-21 10:30 | XMS REPORT ---
Author Author TONEY TENORIO [facility] [employer] Address Unknown Phone Unavailable Care Team Providers Care Labor Specialist Name Role Phone TONEY TENORIO CP Unavailable Allergies No Known Allergies Problems Problem Type Condition Code Onset Dates Condition Status Assessment Normal in multigravida in third trimester Z34.83 Active Assessment 35 weeks gestation of Z3A.35 Active Problem Other normal , not first, [...] Start Date End Date Status Dosage Vitamin [facility] [address] not defined Procedures Procedure Coding System Code Date LAB NOT BILLED BY [facility] CPT-4 NOBLL December 09, 2015 Office Visit, Est Pt., Level 3 CPT-4 89069 December 09, 2015 URINE-NO MICRO CPT-4 22571 December 09, 2015 Vital Signs Date/Time: December 09, 2015 Cardiac Monitoring Heart Rate 77 bpm Weight 201.6 lbs Height 68.5 in Blood Pressure Diastolic 85 mmHg Blood Pressure Systolic 134 mmHg Results No Known Results Summary Purpose [employer] Submission
--- OUTSIDE RECORDS SUMMARY | 2016-11-21 10:30 | XMS REPORT ---
Author Author NAHOMY CORDOBA [facility] [employer] Address Unknown Phone Unavailable Care Team Providers Care Sifter Operator Name Role Phone NAHOMY CORDOBA Unavailable Allergies No Known Allergies Problems Problem Type Condition Code Onset Dates Condition Status Problem Need for rhogam due to Rh negative mother O36.0990 Active Problem History of pre-eclampsia in prior , currently in first trimester O09.291 Active Problem Vaginal bleeding during , antepartum O46.90 Active Problem Abdominal cramping R10.9 Active Assessment Leukopenia, unspecified type D72.819 Active Medications No Known Medications Results No Known Results Summary Purpose [employer] Submission
--- OUTSIDE RECORDS SUMMARY | 2016-11-21 10:30 | XMS REPORT ---
Author Author NAHOMY CORDOBA [facility], [place] eClinicalWorks Address Unknown Phone Unavailable Care Team Providers Care Guide Dog Mobility Instructor Name Role Phone NAHOMY CORDOBA Unavailable Allergies, Adverse Reactions, Alerts Substance Reaction Event Type N.K.D.A. Info Not Available Non Drug Allergy Problems Problem Type Condition Code Onset Dates Condition Status Assessment Abdominal cramping R10.9 Active Assessment Need for rhogam due to Rh negative mother O36.0990 Active Assessment History of pre-eclampsia in prior , currently in first trimester O09.291 Active Assessment Routine screening for STI (sexually transmitted infection) Z11.3 Active Assessment Screening for malignant neoplasm of cervix Z12.4 Active Problem Need for rhogam due to Rh negative mother O36.0990 Active Problem History of pre-eclampsia in prior , currently in first trimester O09.291 Active Problem Vaginal bleeding during , antepartum O46.90 Active Assessment with 8 completed weeks gestation Z3A.08 Active Assessment Vaginal bleeding during , antepartum O46.90 Active Problem Abdominal cramping R10.9 Active Assessment care, subsequent in first trimester Z34.81 Active Medications Medication Code System Code Instructions Start Date End Date Status Dosage Vitamin [facility] [place] [id number] not defined Procedures Procedure Coding System Code Date URINALYSIS, AUTO, W/O SCOPE CPT-4 33152 Jun 02, 2015 BLOOD TYPING, ABO CPT-4 71270 Jun 02, 2015 CHORIONIC GONADOTROPIN TEST CPT-4 46894 Jun 02, 2015 RUBELLA ANTIBODY CPT-4 49938 Jun 02, 2015 COMPLETE CBC W/AUTO DIFF WBC CPT-4 68120 Jun 02, 2015 BLOOD TYPING, RH (D) CPT-4 95258 Jun 02, 2015 URINE CULTURE/COLONY COUNT CPT-4 90619 Jun 02, 2015 SPECIMEN HANDLING CPT-4 43900 Jun 02, 2015 TRICHOMONAS ASSAY W/OPTIC CPT-4 79404 Jun 02, 2015 ASSAY THYROID STIM HORMONE CPT-4 38114 Jun 02, 2015 CULTURE, BACTERIA, OTHER CPT-4 28984 Jun 02, 2015 VENIPUNCT, ROUTINE* CPT-4 59130 Jun 02, 2015 No Charge CPT-4 20950 Jun 02, 2015 RH IG, FULL-DOSE, IM CPT-4 15940 Jun 02, 2015 THER/PROPH/DIAG INJ, SC/IM CPT-4 86001 Jun 02, 2015 RBC ANTIBODY SCREEN CPT-4 14711 Jun 02, 2015 Office Visit, Est Pt., Level 4 CPT-4 99030 Jun 02, 2015 Vital Signs Date/Time: Jun 02, 2015 Temperature 97.3 F Weight 181.5 lbs Height 68.5 in BMI 27.196 Index Blood Pressure Diastolic 84 mmHg Blood Pressure Systolic 126 mmHg Cardiac Monitoring Heart Rate 80 bpm Results Name Result Date Reference Range Unit Abnormality Flag HCG, QUANTITATIVE ----hCG,Beta Subunit,Qnt,Serum 00792 [id number] mIU/mL CBC ----Basos 1 94575152 % ----MCV 84 84495611 79-97 fL ----Hematocrit 39.6 59038260 34.0-46.6 % ----Eos 1 96510428 % ----MCHC 33.3 44631741 31.5-35.7 g/dL ----Monocytes 30 23724466 % ----MCH 28.1 99389749 26.6-33.0 pg ----Lymphs 58 55753164 % ----Eos (Absolute) 0.0 88508862 0.0-0.4 x10E3/uL ----WBC 2.4 76308137 3.4-10.8 x10E3/uL LL ----Hematology Comments: Note: [id number] ----Monocytes(Absolute) 0.7 97038733 0.1-0.9 x10E3/uL ----Lymphs (Absolute) 1.4 90786411 0.7-3.1 x10E3/uL ----Hemoglobin 13.2 77844268 11.1-15.9 g/dL ----Neutrophils (Absolute) 0.2 41849192 1.4-7.0 x10E3/uL < ----RBC 4.70 20222342 3.77-5.28 x10E6/uL ----Immature Grans (Abs) 0.0 20150602 0.0-0.1 x10E3/uL ----Immature Granulocytes 0 20150602 % ----Neutrophils 10 56663693 % ----Baso (Absolute) 0.0 20150602 0.0-0.2 x10E3/uL ----RDW 13.5 20150602 12.3-15.4 % ----Platelets 227 20150602 150-379 x10E3/uL UA LONG DIP (IN HOUSE) ----COURT negative 20150602 ----NIT negative 20150602 ----SG 1.025 20150602 ----KET trace 20150602 ----PARISH negative 20150602 ----GLU negative 20150602 ----Odor no 20150602 ----pH 7.0 20150602 ----BLO trace - intact 20150602 ----URO 1.0 E.U./dL 20150602 ----Protein negative 20150602 ----Lot # [id number] ----Exp date 20150602 ----Clarity clear 20150602 ----Color yellow 20150602 TSH () ----TSH 2.350 20150602 0.450-4.500 uIU/mL ROUTINE VENIPUNCTURE RUBELLA ANTIBODIES, IgG ----Rubella Antibodies, IgG <0.90 20150602 Immune >0.99 index L Ultrasound : OB, Early <14 WEEKS PDF Report ----PDF Report1 [facility] [id number] ANTIBODY SCREEN ----Antibody Screen Negative 20150602 Negative CULTURE, URINE ----Result 1 No growth 20150602 ----Urine Culture, Routine Final report [id number] BLOOD TYPE/RH FACTOR ----Rh Factor Negative 20150602 ----ABO Grouping A [id number] Summary Purpose eClinicalWorks Submission
--- OUTSIDE RECORDS SUMMARY | 2016-11-21 10:30 | XMS REPORT ---
Author Author MAIA FELIX eClinicalWorks Address Unknown Phone Unavailable Care Team Providers Care Pathology Tech Name Role Phone MAIA FELIX CP Unavailable Allergies, Adverse Reactions, Alerts Substance Reaction Event Type N.K.D.A. Info Not Available Non Drug Allergy Problems Problem Type Condition Code Onset Dates Condition Status Assessment Encounter for insertion of mirena IUD Z30.430 Active Medications Medication Code System Code Instructions Start Date End Date Status Dosage Mirena [facility] [id number] 20 MCG/24HR Intrauterine Placed 03/11/2016Feb as directed Procedures Procedure Coding System Code Date INSERT INTRAUTERINE DEVICE CPT-4 77914 Mar 11, 2016 URINE TEST CPT-4 45595 Mar 11, 2016 Vital Signs Date/Time: Mar 11, 2016 Cardiac Monitoring Heart Rate 72 bpm Weight 192.0 lbs Height 68.5 in BMI 28.77 Index Blood Pressure Diastolic 74 mmHg Blood Pressure Systolic 128 mmHg Results Name Result Date Reference Range Unit Abnormality Flag TEST, URINE (IN HOUSE) ----RESULTS Negative [id number] ----Lot # [id number] ----Control + 20160311 ----Exp date [id number] IUD INSERTION Summary Purpose eClinicalWorks Submission
== END 2016-11-17 14:21 | disposition home or self-care (01) ==
LOC: SDC 06:58
PROVIDERS: ATTEND Obstetrics & Gynecology
DX: T83.89XA Other specified complication of genitourinary prosthetic devices, implants and grafts, initial encounter (principal)
CPT/HCPCS: 36415; 74000; 84703; 85025; 86850; 86900; 86901; 87081; 94664

== ENCOUNTER → 2018-11-22 | Outpatient (CLI) | payer SELFPAY ==
[~2018-11-22] MED LIST changes: +HYDR-3062 PO
[2018-11-22 16:14] LABS: BASOPHILS % (AUTO) 0 % (0-10); EOSINOPHILS % (AUTO) 1 % (0-10); HEMATOCRIT 39 % (35-52); HEMOGLOBIN 13.4 G/DL (11.5-16.0); LYMPHOCYTES # (AUTO) 1.3 X 10^3 (1.0-4.0); LYMPHOCYTES % (AUTO) 19 % (12-44); MEAN CORPUSCULAR HEMOGLOBIN 29 PG (25-34); MEAN CORPUSCULAR HGB CONC 34 G/DL (32-36); MEAN CORPUSCULAR VOLUME 84 FL (80-99); MEAN PLATELET VOLUME 10.3 FL (7.4-10.4); MONOCYTES # (AUTO) 0.4 X 10^3 (0.0-1.0); MONOCYTES % (AUTO) 6 % (0-12); NEUTROPHILS # (AUTO) 5.1 X 10^3 (1.8-7.8); NEUTROPHILS % (AUTO) 74 % (42-75); PLATELET COUNT 215 10^3/uL (130-400); RED CELL DISTRIBUTION WIDTH 13.1 % (10.0-14.5); WHITE BLOOD COUNT 6.9 10^3/uL (4.3-11.0)
== END ==
LOC: LAB 15:42
PROVIDERS: ATTEND Registered Nurse
DX: R53.83 Other fatigue (principal); R00.2 Palpitations; L65.9 Nonscarring hair loss, unspecified; Z83.49 Family history of other endocrine, nutritional and metabolic diseases
CPT/HCPCS: 36415; 84443; 85025

== ENCOUNTER → 2019-08-16 | Outpatient (CLI) | payer OTHER ==
[~2019-08-16] MED LIST changes: +ACHD5005 PO; -HYDR-3062 PO
--- NOTE | 2019-08-16 13:08 | Diagnostic Imaging Report ---
INDICATION: Palpable lump in the medial left breast. Sonographic interrogation of the medial left breast was performed. No sonographic abnormality is seen. No solid or cystic mass is detected. IMPRESSION: BI-RADS Category 1 No sonographic abnormality is seen. Continued close clinical and self breast exam is recommended. If this persists, diagnostic mammography could be performed. ACR BI-RADS Category 1: Negative. Result letter will be mailed to the patient. Note: At least 10% of breast cancer is not imaged by mammography. Dictated by: Dictated on workstation # [id number]
== END ==
LOC: RAD 09:10
PROVIDERS: ATTEND Obstetrics & Gynecology
DX: N63.22 Unspecified lump in the left breast, upper inner quadrant (principal)
CPT/HCPCS: 76642

== ENCOUNTER → 2020-12-21 | Outpatient (CLI) | payer OTHER ==
--- NOTE | 2020-12-21 16:40 | Diagnostic Imaging Report ---
PROCEDURE: MR imaging cervical spine without contrast. TECHNIQUE: Multiplanar, multisequence MR imaging of the cervical spine was performed without contrast. INDICATION: Chronic neck pain and left shoulder pain. COMPARISON: none. FINDINGS: No acute fracture or dislocation is seen in the cervical spine. There is straightening of the cervical spine. The vertebral body heights and disc spaces are well maintained. The bone marrow signal is unremarkable. No focal osseous lesions. The craniocervical junction is maintained. The cervical spinal cord demonstrates normal intrinsic signal. No epidural collections are seen. The included brainstem and posterior fossa have normal appearance. A left foraminal disc protrusion is seen at the C5-C6 level resulting in [id number] left foraminal stenosis. There is also mild left foraminal narrowing at the C6-C7 level secondary to uncovertebral arthropathy. No significant stenosis is seen in the spinal canal or right foramen and the cervical spine. The soft tissues of neck are unremarkable. IMPRESSION: 1. No acute fracture or dislocation of the cervical spine. 2. [id number] left foraminal stenosis at the C5-C6 level secondary to a small left foraminal disc protrusion. There is mild left foraminal narrowing at C6-C7 secondary to uncovertebral arthropathy. No significant spinal canal stenosis in the cervical spine. Dictated by: Dictated on workstation # [id number]
--- NOTE | 2020-12-21 16:46 | Diagnostic Imaging Report ---
PROCEDURE: MRI lumbar spine. TECHNIQUE: Multiplanar, multisequence MRI of the lumbar spine was performed without contrast. INDICATION: Back pain. COMPARISON: No relevant comparison. FINDINGS: The lumbar vertebral statures are normal. The alignment is anatomic. The marrow signal intensity is normal. The pedicles and pars were intact. The ligamentous structures are intact. The conus appeared normal. There is normal dispersal of the nerves of the cauda equina with no paravertebral mass, hemorrhage, or fluid collection. Abnormalities are isolated to the L4-L5 level. The disc shows normal stature; however, it is desiccated with peripheral annular tearing of the midline posteriorly and mild diffuse circumferential disc bulge. No focal herniation. Disc material minimally flattens and effaces the ventral thecal sac, but a substantial degree of canal, foraminal, or recess stenosis was not felt present. The remaining discs are well hydrated and maintain normal stature and are nondisplaced. IMPRESSION: Midline posterior annular tearing of the L4-L5 disc associated with slight circumferential generalized bulge and mild disc desiccation. No resultant canal, foraminal, or recess stenosis with normal alignment. Remaining levels normal. No other significant finding. Dictated by: Dictated on workstation # [id number]
== END ==
LOC: RAD 15:30
PROVIDERS: ATTEND Registered Nurse
DX: M48.02 Spinal stenosis, cervical region (principal); M50.222 Other cervical disc displacement at C5-C6 level; M47.812 Spondylosis without myelopathy or radiculopathy, cervical region; M51.36 Other intervertebral disc degeneration, lumbar region; M51.26 Other intervertebral disc displacement, lumbar region
CPT/HCPCS: 72141; 72148

== ENCOUNTER → 2020-12-22 | Outpatient (CLI) | payer OTHER ==
--- NOTE | 2020-12-22 16:13 | Diagnostic Imaging Report ---
PROCEDURE: MRI left upper extremity without contrast. TECHNIQUE: Multiplanar, multisequence noncontrast-enhanced MRI of the left upper extremity was accomplished. INDICATION: Left shoulder pain and spasms. Muscle knots. FINDINGS: There is no fracture, dislocation, or other acute bony abnormality. There is some abnormal signal within the supraspinatus tendon, consistent with tendinosis, with no tear seen. No labral tear is evident but subtle tears would need to be evaluated with intra-articular contrast. There is no muscle mass or edema. No ganglion is evident. There is no bony abnormality. IMPRESSION: Tendinosis of the supraspinatus tendon with no tear or other abnormality seen. Dictated by: Dictated on workstation # [id number]
== END ==
LOC: RAD 15:30
PROVIDERS: ATTEND Registered Nurse
DX: M67.814 Other specified disorders of tendon, left shoulder (principal); M62.830 Muscle spasm of back; M54.5 Low back pain
CPT/HCPCS: 73221